=== PATIENT | female | born 1930 ===

== ENCOUNTER → 2016-03-27 | Outpatient (CLI) | payer MEDICARE, OTHER | LOC: GMAH 14:12 | PROVIDERS: ATTEND Family Medicine | DX: S81.802A Unspecified open wound, left lower leg, initial encounter (principal) ==

== ENCOUNTER 2016-04-12 18:32 | Inpatient (IN) | payer MEDICARE, OTHER ==
--- NOTE | 2016-04-12 18:41 | ED.PDOC ---
History of Present Illness - General Chief Complaint: General Stated Complaint: CHF & Acute renal failure Time Seen by Provider: 04/12/16 18:37 Source: patient, RN notes reviewed, Vital Signs reviewed, EMS notes reviewed Exam Limitations: no limitations - History of Present Illness Initial Comments: Patient sent in from shelter by Nurse Practitioner for Elevated BNP of 1360 , BUN 102, Creatinine 3.51. Patient denies any symptoms. Per [facility] family reports that she seems more fatigued than usual. Timing/Duration: unsure Severity: moderate Improving Factors: nothing Worsening Factors: nothing Associated Symptoms: denies symptoms Allergies/Adverse Reactions: Allergies Latex Adverse Reaction (Verified 01/04/16 01:19) Morphine Adverse Reaction (Verified 01/04/16 01:19) Home Medications: Ambulatory Orders Acetaminophen [Tylenol] 650 mg PO PRN PRN 04/12/16 Aspirin [Dante Low Dose] 81 mg PO DAILY 04/12/16 Bumetanide 4 mg PO DAILY 04/12/16 Levothyroxine Sodium [Levo-T] 200 mcg PO DAILY 04/12/16 Metformin HCl [Metformin HCl ER] 500 mg PO DAILY 04/12/16 Metolazone 2.5 mg PO DAILY 04/12/16 Metoprolol Succinate [Metoprolol Succinate ER] 25 mg PO DAILY 04/12/16 Potassium Chloride Microencaps [Klor-Con M20] 20 meq PO QID 04/12/16 Risperidone [Risperdal] 0.75 mg PO 04/12/16 Review of Systems - Review of Systems Constitutional: States: malaise, weakness. Denies: chills, diaphoresis, fever EENTM: States: no symptoms reported Respiratory: States: no symptoms reported Cardiology: States: no symptoms reported Gastrointestinal/Abdominal: States: no symptoms reported Genitourinary: States: no symptoms reported Musculoskeletal: States: no symptoms reported Skin: States: no symptoms reported Neurological: States: no symptoms reported Endocrine: States: no symptoms reported Past Medical History (General) - Patient Medical History Hx Congestive Heart Failure: Yes Hx Diabetes: No - Social History Hx Tobacco Use: No Hx Alcohol Use: No Hx Substance Use: No Hx Substance Use Treatment: No Hx Depression: No - Female History Patient : No Family Medical History - Family History Mother Family History: Unknown Living Status: Physical Exam - Physical Exam General Appearance: Comfortable, Frail, No apparent distress Neck: non-tender, full range of motion, supple, normal inspection Respiratory: chest non-tender, no respiratory distress, no accessory muscle use , decreased breath sounds - bilateral bases Cardiovascular/Chest: regular rate, rhythm, no gallop, no murmur Peripheral Pulses: posterior tibialis,right: 2+, posterior tibialis,left: 2+ Gastrointestinal/Abdominal: normal bowel sounds, non tender, soft Extremity: pedal edema, swelling, other - mildly erythematous and tender. Neurologic: normal mood/affect Skin Exam: normal color, warm/dry Lymphatic: no adenopathy Progress - Progress Progress: 04/12/16 19:33 Discussed with LOKI Zhu - will admit to hospital for acute renal failure and congestive heart failure. - Results/Orders Results/Orders: Laboratory Tests 04/12/16 18:45 D-Dimer, Quantitative 539 H* Creatine Kinase 34 CK-MB (CK-2) 4.9 H* CK-MB (CK-2) % Not Reportable Troponin I 0.04 Drawn earlier in day: BNP 1360, BUN 102, Creatinine 3.51 - EKG/XRAY/CT EKG: Atrial, nonspecific ST T wave Chg Comments: Paced Rhythm XRAY: chest - Mild pulmonary edema Departure - Departure Clinical Impression: Congestive heart failure, Acute renal failure Time of Disposition: 20:06 Disposition: Admit Patient Home Medications: Ambulatory Orders Acetaminophen [Tylenol] 650 mg PO PRN PRN 04/12/16 Aspirin [Dante Low Dose] 81 mg PO DAILY 04/12/16 Bumetanide 4 mg PO DAILY 04/12/16 Levothyroxine Sodium [Levo-T] 200 mcg PO DAILY 04/12/16 Metformin HCl [Metformin HCl ER] 500 mg PO DAILY 04/12/16 Metolazone 2.5 mg PO DAILY 04/12/16 Metoprolol Succinate [Metoprolol Succinate ER] 25 mg PO DAILY 04/12/16 Potassium Chloride Microencaps [Klor-Con M20] 20 meq PO QID 04/12/16 Risperidone [Risperdal] 0.75 mg PO 04/12/16 Decision To Admit - Decistion To Admit Decision to Admit Reason: Admit from ER Decision to Admit Date: 04/12/16 Decision to Admit Time: 19:33
--- NOTE | 2016-04-12 20:01 | HP ---
SUPERVISING PHYSICIAN: GONZALO GREER MD CHIEF COMPLAINT: Weakness and change in mental status. HISTORY OF PRESENT ILLNESS: This is an 85 year-old female patient who recently moved to [place] from [place]. Her son is a local dentist. She had lived on her own in [place] until about August of 2015. She began declining in health and was unable to take care of herself any further and she had some dementia so he moved her to [facility] in their Dementia Unit in August of this past year. Up until about 2 weeks ago she was in her usual state of health. She does have a significant history of congestive heart failure and some renal insufficiency but she could use the walker and she can converse with her son and the residents at [facility] but about 2 weeks ago she started declining in her health. She became weaker and her dementia somewhat worsened. Today, her son called Dr. Rocha's office due to her declining state. Dr. Rocha called me to see if she could be admitted to the hospital. I recommended some lab work be done and Dr. Rocha ordered that from her home health. Her home health , [facility], called me and told me the results of the lab. Her BNP was 1360, BUN 102 and creatinine 3.51. Although we do not have extensive records here at [place], her baseline creatinine is about 1.4 to 1.5. Her urinalysis was basically within normal limits and she was anemic with her hemoglobin at 9.8 and hematocrit at 29.9. She also has a platelet count of 61, 000. After receiving the results, I called her son and recommended she be taken to the Emergency Room for workup. In addition to the lab work that was just reported, cardiac enzymes were done. Her creatinine kinase was 34, CKMB 4.9 and troponin was 0.04. Chest x-ray showed an enlarged cardiac silhouette with mild indistinctness of the pulmonary vessels compatible with pulmonary edema. There is blunting of the costophrenic angles compatible with pleural fluid collections. Her D-dimer was 539 but the Emergency Room physician was unable to do a CT scan due to her creatinine level. Dr. [place] called me for an admission to the hospital. CODE STATUS: DNR. Review of systems and medical history is limited from the patient due to her mental status. Her medical history was obtained from her son and medical records from Dr. Rocha's office. PAST MEDICAL HISTORY: 1. Alzheimer's dementia. 2. Chronic kidney injury, stage 3. 3. Congestive heart failure of unknown etiology and no echocardiogram for review. 4. Edema of lower extremities. 5. Lacerations on lower extremities. 6. Pressure ulcer of the buttocks. 7. Elevated fasting glucose with no diagnosis of diabetes. PAST SURGICAL HISTORY: 1. Bilateral knee replacements. 2. Hysterectomy. CURRENT MEDICATIONS: Per the EMR and awaiting verification. ALLERGIES: MORPHINE SULFATE. SOCIAL HISTORY: There is no smoking, ETOH or illicit drug use. She lives at [facility] and her son is a local dentist here in the [facility]. Her primary care physician is Dr. Jose Manuel Rocha. REVIEW OF SYSTEMS: Limited due to patient's mental status, although her son says the only symptoms that she has been exhibiting over the last few weeks are a decline in mental [id number] as well as weakness and dizziness. She has had no shortness of breath and actually her lower extremities are much less edematous than they have been in the past. She has also been unable to ambulate with her walker as she had previously. PHYSICAL EXAMINATION: VITAL SIGNS: She is afebrile. Pulse rate 80. Blood pressure 102/48, respiratory rate 20. Her 02 saturation is 97% on room air. GENERAL: This is an 85 year-old obese female who is lying in her hospital bed. HEENT: Normocephalic and atraumatic. Pupils are equal and reactive. Oropharynx is clear. Oral mucous membranes are moist. NECK: Supple without mass. It is difficult to discern if there is any jugular venous distention. CHEST: Bilateral crackles scattered throughout. She is somewhat diminished at the bases. There is equal rise and fall of the chest on inspiration and expiration. CARDIOVASCULAR: Regular rate and rhythm, although the heart tones are distant. ABDOMEN: Rounded. It is soft, it is non-tender. Bowel sounds are positive. EXTREMITIES: She has multiple healing wounds on her left lower leg with some darkened eschar type tissue and scabbing. She also has an abrasion to the posterior right knee that her son is consistent with the edge of her wheelchair. It has some slight serous drainage from that area. There is no cyanosis and there is only a trace of pedal edema. Her bilateral pedal pulses are palpable at +1. NEUROLOGIC: She is lethargic but she awakens easily. She answers some simple yes, no questions appropriately but she gets confused easily. She is oriented to person only. Labs and films are as per the history of present illness. ASSESSMENT: 1. Cardiorenal syndrome. 2. Anemia. 3. Acute on chronic renal failure. 4. Congestive heart failure of unknown etiology. She has a significant history of congestive heart failure and there is no ehrlichiosis for review. 5. Altered mental status. 6. Thrombocytopenia. 7. Alzheimer's dementia. PLAN: We will admit patient and give conservative treatment for her condition. Her son understands that these attempts may be futile. I will give her 2 doses of Bumex but we will try to correct her creatinine first. I will give her a liter of D5W with some bicarb in it. I will repeat her labs in the morning. Will monitor her hemoglobin and hematocrit closely and at this point, we will use STDs for DVT prophylaxis and a PPI for ulcer prophylaxis. Her condition is very guarded and her son is very aware of her condition. I do believe that her renal failure is much more prevalent at this point than her congestive heart failure. I am not sure what her baseline BNP is and there are no records at Dr. Rocha's office or in this hospital for a previous BNP. She will most likely be in the hospital for several days. If her condition improves , it would be prudent to consult physical therapy for strengthening. We will continue to monitor patient closely and followup as needed. Dr. Greer is the collaborating physician available for consultation. #[id number] [facility]
[2016-04-12] MEDS ORDERED: ACETAMINOPHEN 325 MG TAB PO PRN (22:28)
[2016-04-12] MEDS ORDERED: SODIUM BICARBONATE 10MEQ/10ML 75 MEQ in DEXTROSE 5% 1000ML 1,000 ML IV PRN (22:34)
[2016-04-12] MEDS ORDERED: BUMETANIDE 0.25 MG/ML VIAL IV SCH (22:38)
[2016-04-12] MEDS ORDERED: DEXTROSE 5% 1000ML 1,000 ML IVS ONE (22:58)
[2016-04-12] MEDS ORDERED: SODIUM BICARBONATE VIAL 50 MEQ/50 ML VIAL ONE (22:59)
[2016-04-12] MEDS ORDERED: PANTOPRAZOLE SODIUM IV 40 MG VIAL IV SCH (23:00)
[2016-04-12] MEDS: IV SET AND CAP CHANGE INJ INJ SCH (23:16)
[2016-04-12] MEDS: SODIUM CHLORIDE 0.9% (FLUSH) 10 ML SYG IV PRN ×2 (23:16→23:43)
[2016-04-12] MEDS ORDERED: SODIUM BICARBONATE SYRINGE 50 MEQ/50 ML SYG IV ONE (23:22)
[2016-04-12] MEDS ORDERED: SODIUM CHLORIDE 0.9% 10 ML VIAL ONE (23:37)
[2016-04-13] MEDS ORDERED: SODIUM BICARBONATE VIAL 50 MEQ/50 ML VIAL ONE (08:51)
[2016-04-13] MEDS ORDERED: DEXTROSE 5% 1000ML 1,000 ML IVS ONE (08:51)
[2016-04-13] MEDS ORDERED: SODIUM BICARBONATE VIAL 75 MEQ in DEXTROSE 5% 1000ML 1,000 ML IV PRN (08:58)
--- NOTE | 2016-04-13 12:46 | PCM.CORE ---
Physician DVT/VTE - Prophylaxis Currently: Patient already on anticoagulation therapy - Nurse DVT Assessment & Total Each Risk Factor Represents 3 Points: Age over 75 years, Medical PT with Hx of [place], CHF, Severe infection/sepsis DVT Assessment Score: 6 - 5 or more Very High Risk Treatments: Early Ambulation *, Sequential Compression Device
[2016-04-13] MEDS: ENOXAPARIN SODIUM 30 MG/0.3 ML SYG SUBCU SCH (12:59)
--- NOTE | 2016-04-13 13:08 | PN ---
DATE: 04/13/16 SUPERVISING PHYSICIAN: Marquise Ceron M.D. SUBJECTIVE: The patient is lying in her hospital bed. She is awake. She is confused. Her son is at the bedside. He feels that her mental status is slightly improved since last night, but he agrees that she is not in any discomfort or has any complaints at this time. OBJECTIVE: VITAL SIGNS: She is afebrile, heart rate 61, blood pressure 93/53, respiratory rate 18, O2 sat 96%. Intake is 764 mL and output is 900 mL. GENERAL: This is an 85 year-old female patient who is lying in her hospital bed. She is in no acute distress. RESPIRATORY: Clear to auscultation bilaterally. Somewhat diminished at the bases. CARDIAC: Regular rate and rhythm. ABDOMEN: Rounded, soft, nondistended, non-tender. Bowel sounds are positive. EXTREMITIES: No cyanosis, clubbing or edema. She does have the scabbing noted on the left lower leg as well as behind the right knee. The irritation behind the right knee no longer has any serous drainage. She is awake. She is oriented to person only. LABORATORY: Hemoglobin is 9.6, hematocrit 28.9, platelets 54. BUN and creatinine have very slightly improved to 98 and 3.42. Serum osmolality 315.1. Total bilirubin 1.8. All other labs and films have been reviewed via the EMR. ASSESSMENT: 1. Cardiorenal syndrome. 2. Anemia. 3. Acute on chronic renal failure. 4. Congestive heart failure of unknown etiology. She has a significant history of congestive heart failure and there is no echocardiogram on the chart for review. 5. Altered mental status. 6. Thrombocytopenia. 7. Hyperbilirubinemia. 8. Alzheimer's dementia. PLAN: We will continue present treatment. I spoke with Dr. Herrera today. He recommended that we hold off on any diuretics for now unless she becomes symptomatic with her congestive heart failure. He also recommended that she get several days of D5W with 75 mEq of sodium bicarbonate at 100 mL and hour at least for the next 2 days. I again discussed with her son the patient's poor prognosis. I have ordered physical therapy for Friday. I also ordered routine lab including magnesium in the morning as well as some pulmonary hygiene. We will continue to monitor the patient closely. Followup as needed. #[id number] [facility]
[2016-04-13] MEDS ORDERED: SODIUM CHLORIDE 0.9% 10 ML VIAL IV PRN (15:32)
[2016-04-13] MEDS ORDERED: PANTOPRAZOLE SODIUM IV 40 MG VIAL ONE (19:43)
[2016-04-13] MEDS: SODIUM CHLORIDE 0.9% (FLUSH) 10 ML SYG IV PRN (21:02)
[2016-04-13] MEDS: SODIUM CHLORIDE 0.9% 10 ML VIAL IV PRN (21:02)
[2016-04-13] MEDS: PANTOPRAZOLE SODIUM IV 40 MG VIAL IV SCH (21:03)
[2016-04-14] MEDS: LEVOTHYROXINE SODIUM 0.1 MG TAB PO SCH (06:24)
[2016-04-14] MEDS ORDERED: METOPROLOL SUCCINATE XL 25 MG TAB PO ONE (07:11)
[2016-04-14] MEDS: METOPROLOL SUCCINATE XL 25 MG TAB PO SCH (08:33)
[2016-04-14] MEDS ORDERED: BUMETANIDE 0.25 MG/ML VIAL IV ONE (10:30)
[2016-04-14] MEDS ORDERED: DEXTROSE 5% 1000ML 1,000 ML IVS ONE (10:37)
[2016-04-14] MEDS ORDERED: SODIUM BICARBONATE VIAL 50 MEQ/50 ML VIAL ONE (10:37)
[2016-04-14] MEDS ORDERED: SODIUM BICARBONATE VIAL 75 MEQ in DEXTROSE 5% 1000ML 1,000 ML IV PRN (10:42)
--- NOTE | 2016-04-14 12:32 | PN ---
DATE: 04/14/16 SUPERVISING PHYSICIAN: Marquise Ceron M.D. SUBJECTIVE: The patient is lying in bed. She is somewhat lethargic. There is no family present. She just mumbles words incoherently and at this point does not answer any questions. Nursing staff reported that she continues to be lethargic and does not participate much in her care, although she has been eating. Her son assists her with eating. OBJECTIVE: She is afebrile. Heart rate 68, blood pressure 96/59, respiratory rate 18, O2 sats 92%. RESPIRATORY: Essentially clear to auscultation bilaterally, although she is diminished at the bases. CARDIAC: Regular rate and rhythm. ABDOMEN: Soft, nondistended, non-tender. bowel sounds are positive. EXTREMITIES: No cyanosis, clubbing or edema. She does have the wounds that have dark scabs on them on the left lower leg and the abrasion behind her right knee is draining some fluid. It is slightly erythematous and edematous. NEUROLOGIC: She is lethargic but she awakens and opens her eyes. She is oriented to person only. LABORATORY: WBC 4.3, hemoglobin 9.3, hematocrit 28.8, platelets 55. Sodium 140 , potassium 3.6, chloride 97, BUN 95, creatinine 3.35, magnesium 2.2. All other labs and films have been reviewed via the EMR. ASSESSMENT: 1. Cardiorenal syndrome. 2. Anemia. 3. Acute on chronic renal failure. 4. Congestive heart failure of unknown etiology. She has a significant history of congestive heart failure and there is no echocardiogram on the chart for review. 5. Altered mental status that is slightly worsening. 6. Thrombocytopenia. 7. Hyperbilirubinemia. 8. Alzheimer's dementia. PLAN: We will continue present treatment although I have decreased the D5W down to 50 mL an hour. I spoke with Dr. Herrera and he recommended 1 dose of diuretics and continue with the D5W with sodium bicarbonate in it. Due to her altered mental status that does not seem to be getting better, although it may be due to her renal failure, I am going to do a head CT. I will repeat her labs in the morning. We will continue to monitor the patient closely. Again, her prognosis is very poor as her renal functioning does not seem to be improving. Her son is aware of her poor prognosis. Dr. Ceron is the collaborating physician available for consultation. #[id number] [facility]
[2016-04-14] MEDS: ENOXAPARIN SODIUM 30 MG/0.3 ML SYG SUBCU SCH (12:38)
[2016-04-14] MEDS: SODIUM CHLORIDE 0.9% 10 ML VIAL IV PRN (20:46)
[2016-04-14] MEDS: SODIUM CHLORIDE 0.9% (FLUSH) 10 ML SYG IV PRN (20:46)
[2016-04-14] MEDS: PANTOPRAZOLE SODIUM IV 40 MG VIAL IV SCH (20:47)
[2016-04-15] MEDS: LEVOTHYROXINE SODIUM 0.1 MG TAB PO SCH (06:00)
[2016-04-15] MEDS ORDERED: KCL 20MEQ/WATER FOR INJ 100ML 20 MEQ in PREMIX BAG 1 BAG IVPB ONE (08:16)
[2016-04-15] MEDS ORDERED: KCL 20MEQ/WATER FOR INJ 100ML 100 ML IVPB ONE (09:08)
[2016-04-15] MEDS: METOPROLOL SUCCINATE XL 25 MG TAB PO SCH (09:34)
--- NOTE | 2016-04-15 11:07 | PN ---
DATE: 04/15/16 SUBJECTIVE: The patient is lying in the bed looking around and is pleasant. Most of the questions we ask, it is noted that she has a repetitive "no" answer to. At other times, she appropriately does respond. She states she has not been sleeping well. She is still requiring a little assistance in her feeding and her son is helpful whenever he is able to be here in the feeding. Proper nutrition is important. She complains of no pain and no shortness of breath. She is extremely weak. She apparently is in the memory unit at [facility]. We are awaiting physical therapy evaluation to see if she will benefit by continued rehabilitation while here in the hospital before returning home. This will depend upon her rehab potential. OBJECTIVE: VITAL SIGNS: Afebrile. Pulse 58. Blood pressure 94/60. Pulse oximetry 97% on room air. Weight 71.2 kg. LUNGS: Clear. HEART: Regular heart tones. NEUROLOGIC: She is not entirely oriented with her mentation. ABDOMEN: Soft with fairly good bowel tones noted. LABORATORY: White count down to 3,500 with 47% neutrophils and up to 20% monocytes. Hemoglobin 9.7, platelet count low at 51,000. Chemistries show potassium having dropped in 2 days from 4.9 down to 2.3, possibly related to the alkalinization of her blood to help with renal dysfunction. Her CO2 has gone up from 28 to 33 at the same time. BUN has dropped from 95 yesterday to 89. Creatinine 3.35, down to 2.8. Glucose 85, calcium 9.4. Ammonia yesterday was 67 with previously noted fairly normal liver function studies. TSH 0, suggesting an adjustment down in her thyroid supplementation, which is performed. Cultures showed no growth after 24 hours on right leg wound. No x- rays taken today. ASSESSMENT: 1. Significant chronic renal failure with an acute exacerbation, showing some improvement with fluid and alkalinization. 2. Chronic anemia. 3. History of chronic congestive heart failure with elevated BNP. 4. Significant thrombocytopenia. 5. Altered mental status with minimal improvement. 6. Chronic dementia with some worsening of symptomatology. 7. Elevated bilirubin levels. 8. Significant hypokalemia, requiring supplementation and further followup. PLAN: We will continue current program with special attention to nutrition. Await physical therapy evaluation to check on rehab potential, whether Swing Bed status would assist her with improving her underlying condition and her ability to transfer. Cut back her levothyroxine from 0.2 to 0.1 mg daily. Potassium supplement is significantly started in intervening to assist with the hypokalemia. Special attention to avoid fall because of increased risk. Continue to observe renal function with alteration of IV fluids at this time and reevaluate in the morning. #[id number] [facility]
[2016-04-15] MEDS: KCL 20 MEQ/NS 1,000 ML IVS PRN (11:23)
[2016-04-15] MEDS: POTASSIUM CHLORIDE 10 MEQ TAB PO SCH ×2 (11:53→17:03)
[2016-04-15] MEDS: LACTULOSE SYRUP 20 GM/30 ML UD PO SCH (11:53)
[2016-04-15] MEDS: ENOXAPARIN SODIUM 30 MG/0.3 ML SYG SUBCU SCH (11:55)
[2016-04-15] MEDS: SODIUM CHLORIDE 0.9% (FLUSH) 10 ML SYG IV PRN (21:27)
[2016-04-15] MEDS: SODIUM CHLORIDE 0.9% 10 ML VIAL IV PRN (21:28)
[2016-04-15] MEDS: PANTOPRAZOLE SODIUM IV 40 MG VIAL IV SCH (21:28)
[2016-04-15] MEDS: IV SET AND CAP CHANGE INJ INJ SCH (22:30)
[2016-04-16] MEDS: KCL 20 MEQ/NS 1,000 ML IVS PRN ×2 (00:42→12:53)
[2016-04-16] MEDS: LEVOTHYROXINE SODIUM 0.1 MG TAB PO SCH (06:34)
[2016-04-16] MEDS: POTASSIUM CHLORIDE 10 MEQ TAB PO SCH ×2 (08:01→17:41)
[2016-04-16] MEDS: LACTULOSE SYRUP 20 GM/30 ML UD PO SCH (09:24)
[2016-04-16] MEDS: METOPROLOL SUCCINATE XL 25 MG TAB PO SCH (09:24)
[2016-04-16] MEDS: ENOXAPARIN SODIUM 30 MG/0.3 ML SYG SUBCU SCH (12:49)
--- NOTE | 2016-04-16 13:41 | PN ---
DATE: 04/16/16 SUBJECTIVE: This 85-year-old female was difficult to arouse earlier today, but at lunchtime was able to look around and ask questions and eat part of her food with her son assisting in eating. She was noticeably confused, but yet was able to interact to a certain point. She has not been able to get up into the chair and requires almost maximal assistance. At the Memory Unit at [facility], she is requiring Risperdal and some other medication to assist with significant sundowners where she would yell and stay up most of the night. It has been observed that she does spend most of her night awake and sleeps during the day and we will try to increase activity today to see if we can reverse that process. OBJECTIVE: VITAL SIGNS: Afebrile. Pulse 58. Blood pressure 118/58. Pulse oximetry 98% on room air. LUNGS: Clear. HEART: Regular. ABDOMEN: Soft. NEUROLOGIC: Eating at her food a little bite at a time. She keeps asking questions which unfortunately are unable to be put together in a sentence. She is more alert now compared to earlier this morning. LABORATORY: White count up to 4,200, hemoglobin up to 10, platelet count still low at 48,000. Chemistries showed potassium up from 2.3 to 3.1 with supplementation and further supplementation to continue. BUN has dropped since admission from 98 with a creatinine of 3.4, down today with fluid support to BUN 83 and creatinine 2.39. Osmolality increased with sugar of 72 and will encourage fluid intake. ASSESSMENT: 1. Significant chronic renal failure with acute exacerbation, showing some laboratory improvement with fluids and alkalinization. 2. Chronic anemia. 3. History of chronic congestive heart failure with elevated BNP. 4. History of thrombocytopenia. 5. Altered mental status with minimal status with minimal improvement. 6. Chronic dementia with worsening of functionality. 7. Elevated bilirubin levels. 8. Significant hypokalemia, showing improvement with supplementation. PLAN: We will increase activity with being pushed around the hospital in a wheelchair and then to sit in a chair for the remainder of the day until being able to return to the bed. Observe to see if this will also assist with some of the ability to rest more during the night without the use of significant medications. We will continue the supportive care until further improvement in renal function is noted by tomorrow morning. If stable, consider transferring back to [place] when the son will be available to assist with the setting up of the patient in a more comfortable fashion which she is unable to do so today. Close followup necessary with Dr. Rocha. The case is discussed with Dr. Rocha. #[id number] [id number]
[2016-04-16] MEDS: SODIUM CHLORIDE 0.9% (FLUSH) 10 ML SYG IV PRN (20:39)
[2016-04-16] MEDS: PANTOPRAZOLE SODIUM IV 40 MG VIAL IV SCH (20:41)
[2016-04-17] MEDS: LEVOTHYROXINE SODIUM 0.1 MG TAB PO SCH (06:12)
[2016-04-17] MEDS: POTASSIUM CHLORIDE 10 MEQ TAB PO SCH ×3 (08:00→17:00)
[2016-04-17] MEDS: LACTULOSE SYRUP 20 GM/30 ML UD PO SCH (09:28)
[2016-04-17] MEDS: METOPROLOL SUCCINATE XL 25 MG TAB PO SCH (09:28)
[2016-04-17] MEDS: KCL 20 MEQ/NS 1,000 ML IVS PRN (09:38)
[2016-04-17] MEDS ORDERED: SODIUM CHLORIDE 0.9% (FLUSH) 10 ML SYG IV SCH ×2 (10:30→21:00)
[2016-04-17 15:07] VITALS: BP 110/71; TEMP 97.5; O2SAT 94
--- NOTE | 2016-04-18 11:44 | DS ---
SUPERVISING PHYSICIAN: Ijeoma Ceron MD DISCHARGE DIAGNOSIS: 1. Significant chronic renal failure with acute exacerbation, showing laboratory improvement with fluids and alkalinization. 2. Chronic anemia. 3. History of chronic congestive heart failure with elevated BNP. 4. History of thrombocytopenia. 5. Altered mental status with minimal improvement. 6. Chronic dementia with worsening functionality. 7. Elevated bilirubin levels. 8. Significant hypokalemia, showing improvement with supplementation. HISTORY OF PRESENT ILLNESS: Ms. Silva is an 85-year-old, female patient who recently moved to [place] from [place] as her son is a local dentist. She lives on her own in [place] until about August of 2015. She began declining in health and was unable to take care of herself and had further worsening of dementia, so she was moved to [facility] in their dementia unit in August of this past year. Up until two weeks previous to admission, she was in her usual state of health. She does have a significant history of congestive heart failure and some renal insufficiency, but she normally can use a walker and can converse with her son and the residents at [facility], but about two weeks previously, she started declining in her health. She became weaker and dementia worsened. On date of admission, her son called Dr. Rochas office due to her declining state. Dr. Rocha called the hospitalist at [facility] and requested the patient be directly admitted to the hospital. Initially some lab work was requested by [facility] as Dr. Rocha ordered through [facility] who called results to the lab indicating BNP was elevated at 1360, BUN 102, creatinine 3.5. Review of medical records available in [place] indicated her baseline creatinine was about 1.4 to 1.5. It was noted her urinalysis was basically within normal limits and she was anemic with hemoglobin 9.8 and hematocrit 20.9. Platelet count was also 61,000. It was recommended to the son that she be taken to the Emergency Department for further workup. In addition to the lab that was reported prior to admission to the Emergency Department, cardiac enzymes were completed. Her creatinine kinase was 34, CK-MB was 4.9, troponin 0.4. Chest x-ray showed an enlarged cardiac silhouette with mild pulmonary vessels compatible with pulmonary edema. There was also note of blunting of the costophrenic angles compatible with pleural fluid collections. D-dimer was elevated at 539, but secondary to her creatinine level, we were unable to secure a CT scan. She was then admitted to the Medical/Surgical Floor for continued treatment and evaluation. LABORATORY: Initial CBC on admission showed white count 4.5, at time of discharge was 4.2. Hemoglobin and hematocrit were fairly stable and at discharge were 10.1 and 30.8. Platelet count did show a decline and was 54,000 admission and at time of discharge was 48,000. Differential was without a left shift. Coagulation showed an elevated D-dimer at 539. Chemistries initially on admission showed electrolytes to be within normal limits with BUN 98, creatinine 3.42. After IV fluids and alkalinization treatment, at discharge, her electrolytes showed potassium 3.1, BUN down to 83, creatinine 2.39. Ammonia level was completed on 04/14/16 and was elevated at 67. She was given a dose of Lactulose. Liver functions showed just a mildly elevated bilirubin at 1.8. Otherwise, all liver functions were within normal limits. Troponin was 0.04, calcium 9.3, magnesium 2.2. Urinalysis on admission showed a small amount of blood, otherwise dipstick was within normal limits as well as microscopic exam. MICROBIOLOGY: Wound culture from left leg showed heavy growth of multiple coagulation negative staph suggesting poor quality specimen. RADIOLOGY: Initial chest x-ray in the Emergency Department per radiology interpretation showed findings compatible with cardiac decompensation with mild indistinctness of the pulmonary vessels compatible with pulmonary edema and blunting of the costophrenic angles compatible with pleural fluid collections. HOSPITAL COURSE: Ms. Silva is an 85-year-old, female as noted in the history of present illness who was admitted for acute mental status change and exacerbation of her renal function. She was given some gentle fluids as well as alkalinization and showed some improvement clinically and at discharge was felt to be back to her baseline according to her son in regards to her previous functionality. PLAN: The patient is discharged back to [facility]. She was to continue all previous medications as prior to admission except for metformin, which was stopped which possibly could be exacerbating her renal function. She was encouraged to ambulation with a walker to increase activity as tolerated. She was to have close clinical followup with Dr. Rocha as scheduled on at 11 AM. She was to limit total daily fluids in a 24 hour period to less than 1800 mL per 24 hours and to return to the hospital if not improving. No new prescriptions were added to her current medication regimen. The only noted change was that the metformin was stopped given her worsening renal function. Discussion certainly would be of benefit for the patient regarding her current status and declining health in regards to possible hospice care in the near future. At time of discharge, the patients condition was fair and stable. #[id number] [facility]
--- NOTE | 2016-04-29 00:06 | CT ---
PROCEDURE: Head CLINICAL HISTORY: AMS INDICATION: Same as above Comparison: 01/04/2016 TECHNIQUE: CT of the head was done without intravenous contrast was done in the orthogonal planes. Total DLP: 1547.95 mGy*cm. FINDINGS: There is no intracranial hemorrhage, midline shift mass effect or acute focal infarct. Significant motion artifact is seen on the current study There is prominence of the sylvian fissures and the cortical sulci reflecting age related volume loss. There is periventricular and deep white matter low attenuation, most likely related to small vessel white matter ischemic disease. Benign intracranial vascular calcifications are seen. If clinical concern exists regarding an acute ischemic/vascular pathology being responsible for patient's symptomatology, an MRI of the brain is more sensitive than the current study, in ruling out such a possibility. There is good sotomayor/white matter differentiation. The ventricular system is normal. The mastoid air cells are unremarkable . The paranasal sinuses are unremarkable . There is no visualization of acute fractures involving the calvarium or the skull base. IMPRESSION: There is no acute intracranial abnormality. Age related and chronic involutional changes are seen. Place of interpretation: Teler[facility]iology. Electronically signed by: Josh Chapman MD 04/14/2016 1:47 PM [facility]
--- NOTE | 2016-04-29 08:56 | RAD ---
EXAM DESCRIPTION: Chest,1 View CLINICAL HISTORY: CHF COMPARISON: None FINDINGS: Cardiac silhouette is enlarged which could be secondary to cardiomegaly versus pericardial fluid collection. Pacer leads project over the heart. There is atherosclerosis. Mild indistinctness of the pulmonary vessels compatible with pulmonary edema. There is blunting of the costophrenic angles compatible with pleural fluid collections. There is no pneumothorax. IMPRESSION: Above findings are compatible with cardiac decompensation, please correlate. 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
== END 2016-04-17 14:55 | DRG 683 ==
LOC: ER 18:32 → MS 20:00
PROVIDERS: ADMIT Nurse Practitioner Acute Care; ATTEND Nurse Practitioner Family
DX: N17.9 Acute kidney failure, unspecified (principal); I13.0 Hypertensive heart and chronic kidney disease with heart failure and stage 1 through stage 4 chronic kidney disease, or unspecified chronic kidney disease; I50.9 Heart failure, unspecified; N18.3 Chronic kidney disease, stage 3 (moderate); G30.9 Alzheimer's disease, unspecified; F02.80 Dementia in other diseases classified elsewhere, unspecified severity, without behavioral disturbance, psychotic disturbance, mood disturbance, and anxiety; D64.9 Anemia, unspecified; D69.6 Thrombocytopenia, unspecified; E87.6 Hypokalemia; E80.6 Other disorders of bilirubin metabolism; L89.329 Pressure ulcer of left buttock, unspecified stage; L89.319 Pressure ulcer of right buttock, unspecified stage; Z66 Do not resuscitate; Z96.653 Presence of artificial knee joint, bilateral; Z88.5 Allergy status to narcotic agent

== ENCOUNTER → 2016-04-12 | Outpatient (CLI) | payer MEDICARE, OTHER | END | disposition home or self-care (01) | LOC: BFHH 16:02 | PROVIDERS: ATTEND Family Medicine | DX: I13.0 Hypertensive heart and chronic kidney disease with heart failure and stage 1 through stage 4 chronic kidney disease, or unspecified chronic kidney disease (principal); N39.0 Urinary tract infection, site not specified ==